=== PATIENT | male | born 1950 | race Caucasian/White ===

== ENCOUNTER 2016-12-17 15:25 | Emergency (ER) | payer MEDICARE ==
[~2016-12-17] VITALS: Ht 185.4 cm; Wt 80.5 kg
[2016-12-17 15:30] VITALS: BP 121/77; PULSE 64; RESP 16; O2SAT 100
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
[2016-12-17 16:33] LABS: APPEARANCE,URINE CLEAR (CLEAR,HAZY); COLOR,URINE YELLOW (YELLOW); OCCULT BLOOD,URINE NEGATIVE (NEGATIVE); UROBILINOGEN,URINE NORMAL (NORMAL)
== END 2016-12-17 17:01 | disposition home or self-care (01) ==
LOC: EDBD 15:25 → SED 15:25
DX: F43.0 Acute stress reaction (principal); R55 Syncope and collapse; F20.9 Schizophrenia, unspecified

== ENCOUNTER 2017-01-04 14:12 | Emergency (ER) | payer MEDICARE ==
[~2017-01-04] VITALS: Ht 182.9 cm; Wt 78.6 kg
[2017-01-04 14:16] VITALS: BP 109/71; PULSE 70; RESP 20; O2SAT 99
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
[2017-01-04 18:40] VITALS: BP 119/68; PULSE 85; O2SAT 97
[2017-01-04 19:06] VITALS: BP 119/68; PULSE 85; RESP 20; O2SAT 97
== END 2017-01-04 19:00 | disposition home or self-care (01) ==
LOC: SED 14:12
DX: F43.0 Acute stress reaction (principal); F20.9 Schizophrenia, unspecified; Z88.8 Allergy status to other drugs, medicaments and biological substances; Z91.5 Personal history of self-harm